=== PATIENT | female | born 1990 | race Caucasian/White ===

== ENCOUNTER 2016-07-30 23:53 | Emergency (ER) | payer BC ==
[~2016-07-30] VITALS: Ht 165.1 cm; Wt 125.5 kg
[2016-07-31 00:01] VITALS: TEMP 37.1; Ht 165.1 cm; Wt 125.5 kg
[2016-07-31] MEDS ORDERED: ALBUT/IPRATROP 3MG/0.5MG NEB 3 ML VIAL INH STA (00:12)
[2016-07-31] MEDS ORDERED: ALBUTEROL HFA 8 GM INHALER INH STA (00:12)
[2016-07-31] MEDS ORDERED: FLUO20CA35 PO (00:41)
[2016-07-31] MEDS ORDERED: VNTHFA/IN INH (00:42)
[2016-07-31] MEDS ORDERED: DOXY100C2 PO (01:07)
[2016-07-31] MEDS ORDERED: PRED50TA PO (01:07)
[2016-07-31] MEDS ORDERED: DOXYCYCLINE HYCLATE 100 MG CAP PO ONE (01:15)
[2016-07-31 01:24] VITALS: BP 112/77; PULSE 113; O2SAT 96
--- NOTE | 2016-07-31 04:37 | EMERGENCY ROOM VISIT NOTE ---
History First contact with patient: 00:09 Chief Complaint: SHORTNESS OF BREATH Stated Complaint: SHORT OF BREATH,COUGH,RUNNY NOSE Nursing Triage Summary: pw c/o cough and illness for over a week. tongight SOB became worse over last several hours. lung pain with breathing. productive cough with yellow/green sputum History of Present Illness The patient is a 26 year old female who presents to the Emergency Room with complaints of cough, congestion and wheezing for the past few days. Patient does smoke. She states she feels as if her bronchitis is back again. Patient denies chest pain, abdominal pain, headache, neck status, sore throat, earache, lightheadedness, dizziness, leg pain or swelling. Review of Systems See HPI for pertinent positives & negatives. A total of 10 systems reviewed and were otherwise negative. Past Medical/Surgical History Depression Social History Smoking Status: Current Every Day Smoker Smokeless Tobacco Use: No Drug Use: none Marital Status: in relationship Current/Historical Medications Scheduled Doxycycline Hyclate (Vibramycin), 100 MG PO BID Fluoxetine (Prozac), 20 MG PO DAILY Prednisone (Prednisone), 50 MG PO DAILY Scheduled PRN Albuterol Hfa (Ventolin Hfa), Unknown Dose INH DIRECTED PRN for SOB/Wheezing Allergies Coded Allergies: Montelukast (Verified Allergy, Unknown, rash, 07/31/16) Physical Exam Vital Signs Date Time Temp Pulse Resp B/P Pulse Ox O2 Delivery O2 Flow Rate FiO2 07/31/16 01:24 113 18 112/77 96 07/31/16 00:25 97 Room Air 07/31/16 00:01 37.1 90 18 114/74 97 Room Air Pain Rating (0-10): 3.0 Physical Exam VITALS: Vitals are noted on the nurse's note and reviewed by myself. Vital signs stable. GENERAL: Pleasant female, in no acute distress, nondiaphoretic, well-developed well-nourished. SKIN: The skin was without rashes, erythema, edema, or bruising. There is no tenting of the skin. Capillary reflex less than 2 seconds. HEAD: Normocephalic atraumatic. EARS: External auditory canals clear, tympanic membranes pearly choi without erythema or effusion bilaterally. EYES: Pupils equal round and reactive to light and accommodation. Conjunctivae without injection, sclerae without icterus. Extraocular movements intact. NOSE: Patent, turbinates without inflammation or discharge. No sinus tenderness. MOUTH: Mucous membranes moist. Pharynx without erythema or exudate. Uvula midline. Airway patent. Tongue does not deviate. NECK: Supple without nuchal rigidity. No lymphadenopathy. No thyromegaly. Cervical spine is nontender. No JVD. No meningeal signs HEART: Regular rate and rhythm without murmurs gallops or rubs. LUNGS: Mild diffuse end expiratory wheezes, without rales or rhonchi. No dullness to percussion. No retractions or accessory muscle use. ABDOMEN: Positive bowel sounds x 4. Normal tympanic percussion. Soft, nontender, without masses or organomegaly. Arellano sign negative. No guarding or rebound tenderness. MUSCULOSKELETAL: No muscle atrophy, erythema, or edema noted. NEURO: Patient was alert and oriented to person place and time. Normal sensation to light and sharp touch. No focal neurological deficits. Medical Decision & Procedures Medications Administered Medications (Trade) Dose Ordered Sig/Sherir Route Start Time Stop Time Status Last Admin Dose Admin Albuterol/ Ipratropium (Duoneb) 3 ml NOW STAT INH 07/31/16 00:12 07/31/16 00:14 DC 07/31/16 00:28 3 ML Prednisone (PredniSONE TAB) 60 mg NOW STAT PO 07/31/16 00:12 07/31/16 00:14 DC 07/31/16 00:28 60 MG Albuterol (Ventolin Hfa Inhaler) 2 puffs ONE STAT INH 07/31/16 00:12 07/31/16 00:14 DC 07/31/16 00:28 60 PUFFS Doxycycline Hyclate (Vibramycin Cap) 100 mg ONE ONCE PO 07/31/16 01:15 07/31/16 01:16 DC 07/31/16 01:14 100 MG ED Course Prior records/ancillary studies reviewed. Triage Nursing notes reviewed. Additional history obtained from the family. The patient's history was concerning for respiratory difficulties. Differential diagnosis: Etiologies such as infections, reactive airway disease, pneumonia, pneumothorax , cardiac ischemia, pulmonary embolism, musculoskeletal, gastrointestinal, as well as others were entertained. Physical examination: As above. ER treatment provided: Nebulizer, prednisone, doxycycline On reassessment the patient felt better. Diagnostic interpretation by me: Imaging studies: Chest x-ray with no acute consolidation or pneumothorax or free air per my interpretation This appears to be consistent with bronchitis. Patient felt much better after being medicated as above. She states she normally needs antibiotics with her bronchitis. She was started on doxycycline. She is advised to take medicines as directed and follow-up family care in a few days or here in the ER sooner for high fevers, difficulty breathing, chest pain, worsening signs or symptoms or as needed. Patient was strongly encouraged to quit smoking.. By the evaluation outlined above emergent etiologies such as CHF, cardiac ischemia, pulmonary embolism, pneumonia, pneumothorax, musculoskeletal, serious bacterial infections, as well as others were deemed relatively unlikely. The pt informed about the findings as listed above. All questions were answered and pleased with the treatment. Return instructions were outlined and the patient was discharged in stable condition. Outpatient prescription management: Doxycycline, prednisone Referral: The patient was referred back to their primary care physician for follow-up in 2 to 3 days for a recheck of the current condition. Medical Decision As above Impression Primary Impression: Bronchitis Departure Information Dispostion Home / Self-Care Condition GOOD Prescriptions Prednisone (Prednisone) 50 Mg Tab 50 MG PO DAILY for 4 Days, #4 TAB Prov: Keren Millard .FANI 07/31/16 Doxycycline Hyclate (VIBRAMYCIN) 100 Mg Cap 100 MG PO BID for 7 Days, #14 CAP Prov: Keren Millard PA-C 07/31/16 Forms HOME CARE DOCUMENTATION FORM, IMPORTANT VISIT INFORMATION Patient Instructions Bronchitis Acute, My [facility] Additional Instructions Albuterol Inhaler: Take 2 puffs four times daily for five days, then as needed. Prednisone 50mg: Once daily until the prescription is finished. It is best to take this earlier in the day as some patients note occasional difficulty falling asleep when taken in the late evening. Doxycycline 100mg: Take one pill twice daily for seven days for your infection. Take with food, but avoid dairy. Avoid prolonged sun exposure since this medication makes you temporarily more susceptible to sunburns. All antibiotics can cause diarrhea. If this occurs and you feel worse or it does not resolve in 1-2 days follow up with your doctor or return to the Emergency Department as this could be signs of serious underlying problems. Any medication can cause an allergic reaction, stop the pills immediately and return to the ER for rash, hives, breathing difficulties, or swelling. Acetaminophen(Tylenol) may be used for fever or pain. Use 1000mg every six hours as needed. Avoid using more than 3000mg in a 24 hour period. (AND/OR) Ibuprofen(Motrin, Advil) may be used for fever or pain. Use 600mg every six hours as needed. Take with food. Avoid using more than 2400mg in a 24 hour period. Do not use 2400mg per day for more than three consecutive days without physician direction. Prolonged inappropriate use can lead to stomach upset or ulcers. Rest and drink plenty of fluids. Avoid smoke/smoking, fumes, dust, or any triggers in the past that may have affected your breathing. Continue current medications. Return to the ER for chest pain, difficulty breathing, fevers, vomiting, worsening of your condition, or as needed. Follow up with your primary physician this week for a recheck of your current condition.
--- NOTE | 2016-07-31 06:59 | DIAGNOSTIC IMAGING REPORT ---
CHEST 2 VIEWS ROUTINE CLINICAL HISTORY: cough COMPARISON STUDY: No previous studies for comparison. FINDINGS: The cardiac and mediastinal contours are normal. There is no evidence of focal pulmonary consolidation. There is no evidence of failure. No pleural effusions are visualized.[ IMPRESSION: No active disease in the chest. Electronically signed by: Nabil Thrasher M.D. 07/31/2016 6:57 AM Dictated Date/Time: 07/31/2016 6:57 AM
== END 2016-07-31 01:26 | disposition home or self-care (01) ==
LOC: C.EDB 23:55
DX: J40 Bronchitis, not specified as acute or chronic (principal); F17.210 Nicotine dependence, cigarettes, uncomplicated; F32.9 Major depressive disorder, single episode, unspecified

== ENCOUNTER 2016-11-07 23:44 | Emergency (ER) | payer BC ==
[~2016-11-07] VITALS: Ht 165.1 cm; Wt 125.5 kg
[~2016-11-07 23:44] MED LIST: DOXY100C2 PO; FLUO20CA35 PO; VNTHFA/IN INH
[2016-11-07 23:49] VITALS: Ht 165.1 cm; Wt 125.5 kg
[2016-11-08] MEDS ORDERED: FLUO40CA8 PO (00:11)
[2016-11-08] MEDS ORDERED: ETON1IMP2 ID (00:11)
[2016-11-08 00:37] LABS: BASO % 0.2 %; BASO ABS # 0.03 K/uL (0-0.2); COMPLETE YES; EOS % 2.2 %; HEMATOCRIT 40.3 % (37-47); IG% 0.2 %; LYMPH % 29.6 %; LYMPH ABS # 3.56 K/uL (1.2-3.4); MEAN CELL VOLUME 89.8 fL (80-100); MEAN CORPUSCULAR HEMOGLOBIN 30.3 pg (25-34); MEAN CORPUSCULAR HGB CONC 33.7 g/dl (32-36); MEAN PLATELET VOLUME 10.4 fL (7.4-10.4); MONO % 6.6 %; NEUT % 61.2 %; PLATELET COUNT 228 K/uL (130-400); RED BLOOD COUNT 4.49 M/uL (4.2-5.4); WHITE BLOOD COUNT 12.04 K/uL (4.8-10.8)
[2016-11-08 00:57] LABS: BUN/CREATININE RATIO 19.3 (10-20); CALCIUM 8.5 mg/dl (8.5-10.1); CREATININE 0.83 mg/dl (0.60-1.20); POTASSIUM 3.7 mmol/L (3.5-5.1); URIC ACID 4.4 mg/dl (2.6-7.2)
[2016-11-08 00:58] LABS: C-REACTIVE PROTEIN 1.08 mg/dl (0-0.29)
[2016-11-08] MEDS ORDERED: XYLOCAINE 1%/SOD BICARB 20 ML VIAL INFIL ONE (01:15)
[2016-11-08] MEDS ORDERED: KETOROLAC TROMETHAMINE 30 MG/ML VIAL IV STA (01:20)
[2016-11-08 01:28] LABS: LYME DISEASE AB IGG NEG (NEG); LYME DISEASE AB IGM NEG (NEG)
[2016-11-08 02:17] LABS: SYNOVIAL FLUID APPEARANCE HAZY; SYNOVIAL FLUID COLOR YELLOW; SYNOVIAL FLUID MONONUC RELAT 15.8 %; SYNOVIAL FLUID POLYNUC RELAT 84.2 %
--- NOTE | 2016-11-08 03:10 | EMERGENCY ROOM VISIT NOTE ---
History First contact with patient: 23:53 Chief Complaint: KNEEPAIN Stated Complaint: SWELLING L KNEE-CAN'T BEND FULLY,DIFFICULTY WALKIN History of Present Illness The patient is a 26 year old female who presents to the Emergency Room with complaints of left knee pain and swelling for the past 2 days with no injury. Patient follows with Dr. Deluca. No known tick bites. Patient describes the pain as throbbing, ranging in severity 6 out of 10 worse with movement and better with rest. No prior injury to this knee. Patient denies chest pain, dyspnea, fever, chills, cough, congestion, numbness, tingling, like illness. No rashes. no gout. Review of Systems See HPI for pertinent positives & negatives. A total of 10 systems reviewed and were otherwise negative. Past Medical/Surgical History Asthma, cholecystectomy Social History Smoking Status: Current Every Day Smoker Drug Use: none Marital Status: in relationship Current/Historical Medications Scheduled Etonogestrel (Nexplanon), 1 DOSE ID DIRECTED Fluoxetine (Prozac), 40 MG PO DAILY Scheduled PRN Albuterol Hfa (Ventolin Hfa), Unknown Dose INH DIRECTED PRN for SOB/Wheezing Allergies Coded Allergies: Montelukast (Verified Allergy, Unknown, rash, 11/08/16) Physical Exam Vital Signs Date Time Temp Pulse Resp B/P Pulse Ox O2 Delivery O2 Flow Rate FiO2 11/08/16 01:48 72 16 133/71 97 Room Air 11/07/16 23:49 36.8 84 16 123/81 97 Room Air Physical Exam VITALS: Vitals are noted on the nurse's note and reviewed by myself. Vital signs stable. GENERAL: Pleasant female, in no acute distress, nondiaphoretic, well-developed well-nourished. SKIN: Capillary reflex less than 2 seconds. HEENT: Normocephalic. PERRLA. EOMI. Nares patent. Mucous membranes moist. Neck is supple without nuchal rigidity. HEART: Regular rate and rhythm without murmurs gallops or rubs. LUNGS: Clear to auscultation bilaterally without wheezes, rales or rhonchi. No retractions or accessory muscle use. ABDOMEN: Positive bowel sounds x 4. Normal tympanic percussion. Soft, nontender, without masses or organomegaly. Arellano sign negative. No guarding or rebound tenderness. MUSCULOSKELETAL: No gross musculoskeletal defects. No pedal edema. No calf tenderness.The left knee is swollen. There is joint effusion present. There are no previous scars to the knee. There is no varus or valgus deformity. The patient has a normal gait. The patient is tender easily. There is no joint line tenderness. The patella not subluxate. Range of motion is limited by tenderness. Strength of the quads and hamstrings is 5/5. Carol's is negative. Dk's and Anterior Drawer tests are negative. There is no laxity with varus and valgus stressing. NEURO: Patient was alert and oriented to person place and time. Normal sensation to light and sharp touch. No focal neurological deficits. Medical Decision & Procedures Laboratory Results 11/08/16 00:25 Red Blood Count 4.49, Mean Corpuscular Volume 89.8, Mean Corpuscular Hemoglobin 30.3, Mean Corpuscular Hemoglobin Concent 33.7, Mean Platelet Volume 10.4, Neutrophils (%) (Auto) 61.2, Lymphocytes (%) (Auto) 29.6, Monocytes (%) (Auto) 6.6, Eosinophils (%) (Auto) 2.2, Basophils (%) (Auto) 0.2, Neutrophils # (Auto) 7.38, Lymphocytes # (Auto) 3.56, Monocytes # (Auto) 0.79, Eosinophils # (Auto) 0.26, Basophils # (Auto) 0.03 11/08/16 00:25 Test 11/08/16 00:25 11/08/16 01:20 11/08/16 01:30 White Blood Count 12.04 K/uL (4.8-10.8) Red Blood Count 4.49 M/uL (4.2-5.4) Hemoglobin 13.6 g/dL (12.0-16.0) Hematocrit 40.3 % (37-47) Mean Corpuscular Volume 89.8 fL (80-100) Mean Corpuscular Hemoglobin 30.3 pg (25-34) Mean Corpuscular Hemoglobin Concent 33.7 g/dl (32-36) Platelet Count 228 K/uL (130-400) Mean Platelet Volume 10.4 fL (7.4-10.4) Neutrophils (%) (Auto) 61.2 % Lymphocytes (%) (Auto) 29.6 % Monocytes (%) (Auto) 6.6 % Eosinophils (%) (Auto) 2.2 % Basophils (%) (Auto) 0.2 % Neutrophils # (Auto) 7.38 K/uL (1.4-6.5) Lymphocytes # (Auto) 3.56 K/uL (1.2-3.4) Monocytes # (Auto) 0.79 K/uL (0.11-0.59) Eosinophils # (Auto) 0.26 K/uL (0-0.5) Basophils # (Auto) 0.03 K/uL (0-0.2) RDW Standard Deviation 45.4 fL (36.4-46.3) RDW Coefficient of Variation 13.7 % (11.5-14.5) Immature Granulocyte % (Auto) 0.2 % Immature Granulocyte # (Auto) 0.02 K/uL (0.00-0.02) Erythrocyte Sedimentation Rate 32 mm/hr (0-21) Anion Gap 7.0 mmol/L (3-11) Est Creatinine Clear Calc Drug Dose 138.1 ml/min Estimated GFR () 113.6 Estimated GFR (Non- 98.0 BUN/Creatinine Ratio 19.3 (10-20) Uric Acid 4.4 mg/dl (2.6-7.2) Calcium Level 8.5 mg/dl (8.5-10.1) C-Reactive Protein 1.08 mg/dl (0-0.29) Lyme Disease IgG Antibody NEG (NEG) Lyme Disease IgM Antibody NEG (NEG) Synovial Fluid Source KNEE Synovial Fluid Color YELLOW Synovial Fluid Appearance HAZY Synovial Fluid WBC 3869 /uL (0-200) Synovial Fluid RBC 4000 /uL Synovial Fluid Polynuclear WBCs % 84.2 % Synovial Fluid Mononuclear WBCs % 15.8 % Medications Administered Medications (Trade) Dose Ordered Sig/Sherri Route Start Time Stop Time Status Last Admin Dose Admin Ketorolac Tromethamine (Toradol Inj) 30 mg NOW STAT IV 11/08/16 01:20 11/08/16 01:22 DC 11/08/16 01:40 30 MG Procedure Joint aspiration Indication: Joint effusion. Location: Left knee Verbal consent was obtained after the risks and benefits were explained, including but not limited to bleeding, scarring, infection, pain, and bone/joint /nerve damage. At this time, the risks of the procedure are less than the risks of NOT performing the procedure. A time out was taken and the correct patient and site identified. The skin was prepped with betadine and a sterile field set. The wound was anesthetized with 2 ml of 1% lidocaine without epinephrine. The joint was entered 1 cm superior and lateral to the superior lateral edge of the patella with a 18-gauge needle and yellow synovial fluid, 40 mL, was removed and sent for analysis. There is cleansed and dressed with and a sterile dressing applied and Nino wrap by nursing. Detailed wound care instructions and signs and symptoms of worsening infection reviewed with the patient. No complications and the patient tolerated the procedure well. ED Course Prior records reviewed and summarized above. Triage Nursing notes reviewed. Additional history obtained from the family. The patient's history was concerning for swelling and pain in the leg. Differential diagnosis: Etiologies such as DVT, musculoskeletal, infection, joint effusion, trauma, lymphedema, idiopathic, CHF, as well as others were entertained.. Physical examination: The physical examination revealed no signs of infection. Neurovascularly intact. ER treatment provided: Toradol, Nino wrap and nervousness status was rechecked after placement and is intact. Patient was instructed on the use of crutches On reassessment the patient felt better. Diagnostics interpreted by me: The labs revealed neg lyme, 3800 WBCs on joint fluid analysis. Negative Gram stain. Seems consistent with inflammatory process Lyme fluid pending Leukocytosis. Mild elevation in sedimentation rate and CRP Imaging studies: Knee x-ray with no fracture dislocation, joint effusion This appears to be consistent with knee effusion most likely from inflammatory process. Patient was neurovascularly and neurologically intact. No signs of septic joint. She is advised to follow-up with her orthopedics in a few days or here in the ER sooner for severe pain, fevers, worsening signs or symptoms or as needed. By the evaluation outlined above emergent etiologies such as DVT , septic joint, trauma, infection, CHF, as well as others were deemed relatively unlikely. The pt informed about the findings as listed above. All questions were answered and pleased with the treatment. Return instructions were outlined and the patient was discharged in stable condition. Referral: The patient was referred back to their orthopedist for follow-up in 2 to 3 days for a recheck of the current condition. Case reviewed with my attending. Medical Decision As above Impression Primary Impression: Effusion, left knee Departure Information Dispostion Home / Self-Care Condition GOOD Referrals Florentin Edmonds D.O. (PCP) Patient Instructions My [facility] Additional Instructions DO NOT drive, drink alcohol, operate machinery, or perform dangerous activities today. You were given medications in the ER that can affect your ability to safely function or operate a vehicle. Oxycodone (OxyIR) 5mg: Take 1-2 pills every four hours for breakthrough pain. Avoid alcohol, operating machinery or dangerous equipment, working on ladders or roofs, DRIVING, or situations where being under the influence may be dangerous. It is recommended to use an [id number] stool softener such as Colace, 100mg twice daily while taking this medication to avoid constipation. Ibuprofen(Motrin, Advil) may be used for fever or pain. Use 600mg every six hours as needed. Take with food. Avoid using more than 2400mg in a 24 hour period. Do not use 2400mg per day for more than three consecutive days without physician direction. Prolonged inappropriate use can lead to stomach upset or ulcers. This medication can be taken if you need to drive, work, or perform activities which may be dangerous when taking narcotic pain medication. (AND/OR) Acetaminophen(Tylenol) may be used for fever or pain. Use 1000mg every six hours as needed. Avoid using more than 3000mg in a 24 hour period. This medication can be taken if you need to drive, work, or perform activities which may be dangerous when taking narcotic pain medication. Ice compresses for 20 minutes at a time four times daily for 2-3 days. Use the crutches as instructed. Rest and elevate your injury. Wear ankle Nino wrap until pain subsides. Do not have it so tight that you cannot feel your foot. Continue current medications. Return to the ER immediately for any numbness, tingling, severe pain, extreme swelling in the extremity or as needed. Call your Orthopedics tomorrow to arrange follow up for your injury.
[2016-11-08] MEDS ORDERED: OXYCODONE IR HOME PACK PO ONE (03:15)
[2016-11-08 03:25] VITALS: BP 115/76; PULSE 72; TEMP 36.6; O2SAT 96
--- NOTE | 2016-11-08 06:43 | DIAGNOSTIC IMAGING REPORT ---
LEFT KNEE 3 VIEWS CLINICAL HISTORY: Left knee pain and swelling. No known injury. COMPARISON: None FINDINGS: Alignment of the left knee is anatomic. Joint spaces are preserved. There is no fracture or osseous lesion. There is a large left knee joint effusion. IMPRESSION: 1. No acute fracture. 2. Large left knee joint effusion. Electronically signed by: Aaron Li M.D. 11/08/2016 6:42 AM Dictated Date/Time: 11/08/2016 6:41 AM
[2016-11-10 13:29] LABS: LYME DNA PCR CSF OR SYNOVIAL Not detected (Not Detected); LYME DNA SOURCE Synovial Fluid
== END 2016-11-08 03:27 | disposition home or self-care (01) ==
LOC: C.EDB 23:46
DX: M25.462 Effusion, left knee (principal); J45.909 Unspecified asthma, uncomplicated; F17.200 Nicotine dependence, unspecified, uncomplicated